=== PATIENT | male | born 2000 | race Caucasian/White ===

== ENCOUNTER 2023-08-12 14:05 | Emergency (ER) | payer OTHER, SELFPAY ==
[2023-08-12 14:29] LABS: Bilirubin Negative (Negative); Blood, Urine Trace (Negative); Glucose, Urine (Dipstick) 500 mg/dL (Negative); Ketone, Urine Negative (Negative); Leukocyte Trace (Negative); Nitrite Negative (Negative); Protein, Urine (Dipstick) Negative (Neg-Trace); Urobilinogen 0.2 mg/dL (Less than 2)
[2023-08-12 14:30] LABS: Clarity Hazy (Clear)
[2023-08-12 14:36] LABS: Bacteria/HPF Rare-Few HPF (None Seen); CAUTI Indications for Culture Dysuria,urgency,freq; RBC/HPF 0-3 HPF (0-3); Squamous Epithelial 0-3 HPF (0-3)
[2023-08-12 14:37] LABS: Urine Culture Reflex Yes Yes
[2023-08-12] MEDS ORDERED: Lactated Ringer's 2,000 ML ONE (15:00)
[2023-08-12 15:28] LABS: Base Excess-Venous 2.8 mmol/L (-2.0 to 3.0); Bicarbonate (HCO3v) 28.9 mmol/L (22.0-28.0); CO2 Tension (PvCO2) 47.2 mmHg (42.0-51.0); Calcium, Ionized 1.16 mmol/L (1.15-1.33); Chloride 100 mmol/L (98-107); Hemoglobin - Calc 19.9 g/dL (14.0-18.0); Potassium 3.9 mmol/L (3.5-5.1); Sodium 136 mmol/L (138-145); T. Carbon Dioxide 30.4 mmol/L (22.0-28.0); vO2 Saturation-calc 90.2 % (60.0-85.0)
[2023-08-12 15:33] LABS: Hemoglobin 16.6 g/dL (14.0-18.0); Mean Corpuscular HGB CONC 30.2 g/dL (32.0-36.0); Mean Corpuscular Hemoglobin 26.3 pg (27.0-31.0); Mean Corpuscular Volume 87.3 fl (78.0-98.0); Mean Platelet Volume 9.7 fL (7.4-10.4); Platelet Count 194 10x3/uL (130-400); RBC Distribution Width 12.4 % (11.5-14.5); White Blood Cell (WBC) Count 7.2 10x3/uL (4.8-10.8)
[2023-08-12 15:34] LABS: Band 4 % (5-11); Eosinophils 4 % (0-10); Lymphocytes 12 % (21-51); MDiff Complete? YES; Manual Diff?? YES; Monocytes 7 % (0-10); Myelocyte 1 % (0-0); Neutrophil 59 % (42-75); Platelet Adequacy Comment Appears Adequate; RBC Morph Comment Within Normal Limits; Reactive Lymphocytes 13 % (0-10)
[2023-08-12 15:37] LABS: ALT (SGPT) 30 U/L (8-55); AST (SGOT) 16 U/L (5-34); Albumin 4.2 g/dL (3.5-5.0); Alkaline Phosphatase 79 U/L (40-110); Anion Gap 18 mmol/L (10-20); BUN (Urea Nitrogen) 8 mg/dL (8.9-20.6); Bilirubin, Total 0.6 mg/dL (0.2-1.2); Calc. Creatinine Clearance 0 mL/min (70-130); Calcium 9.4 mg/dL (7.8-10.44); Carbon Dioxide 21 mmol/L (22-29); Chloride 96 mmol/L (98-107); Estimated GFR 105; Globulin 3.4 g/dL (2.4-3.5); Potassium 3.7 mmol/L (3.5-5.1); Protein, Total 7.6 g/dL (6.0-8.3); Sodium 131 mmol/L (136-145)
[2023-08-12 15:38] LABS: Glucose 526 mg/dL (70-105)
[2023-08-12 23:55] LABS: Chlam.trachomatis by PCR,Urine Not Detected (NotDetected); GC N.gonorrhoeae PCR,UrineVOID Not Detected (NotDetected)
== END 2023-08-12 17:17 | disposition home or self-care (01) ==
LOC: MADERS 14:05
DX: N47.6 Balanoposthitis (principal); E11.9 Type 2 diabetes mellitus without complications
CPT/HCPCS: 36416; 80053; 81001; 82010; 82330; 82550; 82803; 85025; 87077; 87086; 87491; 87591; 94760; 96360; J7120

== ENCOUNTER 2024-07-29 20:28 | Emergency (ER) | payer SELFPAY ==
[2024-07-29] MEDS ORDERED: Ondansetron PF 4 MG/2 ML Vial ONE (20:55)
[2024-07-29] MEDS ORDERED: Ketorolac Tromethamine 30 MG (1 mL) VIAL ONE (20:55)
[2024-07-29] MEDS ORDERED: Sodium Chloride 0.9% 1,000 ML ONE (20:55)
[2024-07-29 21:20] LABS: #Basophils 0.1 thou/uL (0.0-0.2); #Lymphocytes 1.5 thou/uL (1.20-3.40); #Monocytes 0.5 thou/uL (0.11-0.59); #Neutrophils 7.4 thou/uL (1.40-6.50); %Basophils 1.6 % (0.0-1.0); %Eosinophils 0.4 % (0.0-10.0); %Lymphocytes 15.7 % (21.0-51.0); %Monocytes 5.3 % (0.0-10.0); Hematocrit 49.2 % (42.0-52.0); Hemoglobin 15.6 g/dL (14.0-18.0); Mean Corpuscular HGB CONC 31.6 g/dL (32.0-36.0); Mean Corpuscular Hemoglobin 27.1 pg (27.0-31.0); Mean Corpuscular Volume 85.8 fl (78.0-98.0); Mean Platelet Volume 10.2 fL (7.4-10.4); Platelet Count 231 10x3/uL (130-400); RBC Distribution Width 12.3 % (11.5-14.5); Red Blood Cell (RBC) Count 5.74 mill/uL (4.70-6.10); White Blood Cell (WBC) Count 9.6 10x3/uL (4.8-10.8)
[2024-07-29 21:25] LABS: Bilirubin Negative (Negative); Blood, Urine Negative (Negative); Clarity Clear (Clear); Glucose, Urine (Dipstick) 500 mg/dL (Negative); Ketone, Urine Trace mg/dL (Negative); Leukocyte Negative (Negative); Nitrite Negative (Negative); Protein, Urine (Dipstick) 30 mg/dL (Neg-Trace); Urobilinogen 0.2 mg/dL (Less than 2); pH, Urine 7.5 (5.0-9.0)
[2024-07-29 21:26] LABS: CAUTI Indications for Culture < 2yrs of age; RBC/HPF None Seen HPF (0-3); Squamous Epithelial 0-3 HPF (0-3); WBC/HPF 0-3 HPF (0-3)
[2024-07-29 21:27] LABS: Urine Culture Reflex Yes Yes
[2024-07-29 21:36] LABS: ALT (SGPT) 38 U/L (Less than 45); AST (SGOT) 22 U/L (11-34); Albumin 4.7 g/dL (3.1-4.5); Alkaline Phosphatase 52 U/L (40-110); Anion Gap 16 mmol/L (10-20); BUN (Urea Nitrogen) 14 mg/dL (8.9-20.6); Bilirubin, Total 0.5 mg/dL (0.3-1.2); Calc. Creatinine Clearance 0 mL/min (70-130); Calcium 9.8 mg/dL (7.8-10.44); Carbon Dioxide 28 mmol/L (22-29); Chloride 97 mmol/L (98-107); Estimated GFR 123; Globulin 3.2 g/dL (2.4-3.5); Glucose 272 mg/dL (70-105); Lipase 16 U/L (8-78); Potassium 3.9 mmol/L (3.5-5.1); Protein, Total 7.9 g/dL (6.0-8.3); Sodium 137 mmol/L (136-145)
== END 2024-07-29 22:18 | disposition home or self-care (01) ==
LOC: MADERS 20:28
DX: E11.9 Type 2 diabetes mellitus without complications (principal); R11.2 Nausea with vomiting, unspecified; Z79.84 Long term (current) use of oral hypoglycemic drugs; Z79.4 Long term (current) use of insulin
CPT/HCPCS: 36416; 80053; 81001; 83690; 85025; 87086; J1885; J2405; J7030

== ENCOUNTER 2025-01-16 04:50 | Emergency (ER) | payer SELFPAY ==
[2025-01-16 05:25] LABS: #Basophils 0.1 thou/uL (0.0-0.2); #Eosinophils 0.2 thou/uL (0.0-0.7); #Lymphocytes 2.5 thou/uL (1.20-3.40); #Monocytes 0.6 thou/uL (0.11-0.59); #Neutrophils 4.3 thou/uL (1.40-6.50); %Basophils 1.6 % (0.0-1.0); %Eosinophils 3.0 % (0.0-10.0); %Lymphocytes 32.4 % (21.0-51.0); %Monocytes 7.4 % (0.0-10.0); %Neutrophils 55.6 % (42.0-75.0); Hematocrit 48.7 % (42.0-52.0); Hemoglobin 15.7 g/dL (14.0-18.0); Mean Corpuscular Hemoglobin 27.3 pg (27.0-31.0); Mean Corpuscular Volume 84.6 fl (78.0-98.0); Platelet Count 239 10x3/uL (130-400); Red Blood Cell (RBC) Count 5.76 mill/uL (4.70-6.10); White Blood Cell (WBC) Count 7.7 10x3/uL (4.8-10.8)
[2025-01-16] MEDS ORDERED: Aspirin Chewable 81 MG TAB ONE (05:39)
[2025-01-16 05:44] LABS: ALT (SGPT) 21 U/L (Less than 45); AST (SGOT) 15 U/L (11-34); Albumin 3.8 g/dL (3.1-4.5); Alkaline Phosphatase 56 U/L (40-110); Anion Gap 17 mmol/L (10-20); BUN (Urea Nitrogen) 12 mg/dL (8.9-20.6); Bilirubin, Total 0.3 mg/dL (0.3-1.2); Calc. Creatinine Clearance 0 mL/min (70-130); Calcium 8.4 mg/dL (7.8-10.44); Carbon Dioxide 21 mmol/L (22-29); Chloride 101 mmol/L (98-107); Globulin 2.6 g/dL (2.4-3.5); Glucose 387 mg/dL (70-105); Potassium 3.9 mmol/L (3.5-5.1); Sodium 135 mmol/L (136-145)
[2025-01-16 05:45] LABS: Troponin I Less than 0.010 ng/mL (< 0.028)
[2025-01-16 07:14] LABS: Troponin I Less than 0.010 ng/mL (< 0.028)
== END 2025-01-16 07:36 | disposition home or self-care (01) ==
LOC: MADERS 04:50
DX: R07.89 Other chest pain (principal); E11.9 Type 2 diabetes mellitus without complications; E66.9 Obesity, unspecified; Z79.4 Long term (current) use of insulin; Z79.84 Long term (current) use of oral hypoglycemic drugs
CPT/HCPCS: 71045; 80053; 84484; 85025; 93005; 94760

== ENCOUNTER 2025-03-07 19:25 | Emergency (ER) | payer SELFPAY ==
[2025-03-07 20:44] LABS: #Basophils 0.2 thou/uL (0.0-0.2); #Eosinophils 0.2 thou/uL (0.0-0.7); #Lymphocytes 3.3 thou/uL (1.20-3.40); #Monocytes 0.6 thou/uL (0.11-0.59); #Neutrophils 4.8 thou/uL (1.40-6.50); %Basophils 2.2 % (0.0-1.0); %Eosinophils 2.7 % (0.0-10.0); %Lymphocytes 36.2 % (21.0-51.0); %Monocytes 6.5 % (0.0-10.0); %Neutrophils 52.3 % (42.0-75.0); Hematocrit 54.7 % (42.0-52.0); Hemoglobin 17.3 g/dL (14.0-18.0); Mean Corpuscular Hemoglobin 27.0 pg (27.0-31.0); Mean Corpuscular Volume 85.2 fl (78.0-98.0); Platelet Count 253 10x3/uL (130-400); Red Blood Cell (RBC) Count 6.42 mill/uL (4.70-6.10); White Blood Cell (WBC) Count 9.1 10x3/uL (4.8-10.8)
[2025-03-07 20:54] LABS: Cocaine Metabolite Screen Negative (Negative); THC/Cannabinoid Screen Negative (Negative); Tricyclic Screen Negative (Negative)
[2025-03-07 21:03] LABS: Troponin I Less than 0.010 ng/mL (< 0.028)
[2025-03-07 21:04] LABS: ALT (SGPT) 31 U/L (Less than 45); AST (SGOT) 17 U/L (11-34); Albumin 4.4 g/dL (3.1-4.5); Alkaline Phosphatase 69 U/L (40-110); Anion Gap 18 mmol/L (10-20); BUN (Urea Nitrogen) 22 mg/dL (8.9-20.6); Bilirubin, Total 0.3 mg/dL (0.3-1.2); CK (CPK) 97 U/L (30-200); Calc. Creatinine Clearance 0 mL/min (70-130); Calcium 9.6 mg/dL (7.8-10.44); Carbon Dioxide 23 mmol/L (22-29); Chloride 98 mmol/L (98-107); Globulin 3.1 g/dL (2.4-3.5); Glucose 308 mg/dL (70-105); Magnesium 2.0 mg/dL (1.6-2.6); Potassium 3.8 mmol/L (3.5-5.1); Sodium 135 mmol/L (136-145)
[2025-03-07] MEDS ORDERED: Orphenadrine Citrate 60 MG/2 ML VIAL ONE (21:23)
[2025-03-07] MEDS ORDERED: diphenhydrAMINE 50 MG/ML VIAL ONE (21:32)
[2025-03-07] MEDS ORDERED: Oxymetazoline HCl 0.05% (30 ML BOT) ONE (22:42)
== END 2025-03-08 00:30 | disposition home or self-care (01) ==
LOC: MADERS 19:25
DX: R07.89 Other chest pain (principal); R04.0 Epistaxis; R51.9 Headache, unspecified; E11.65 Type 2 diabetes mellitus with hyperglycemia; E66.9 Obesity, unspecified
CPT/HCPCS: 36416; 70450; 71045; 80306; 82550; 83735; 83880; 85379; 93005; J1200; J1815; J2360; J7030